=== PATIENT | male | born 2000 | race Caucasian/White ===

== ENCOUNTER 2023-01-22 08:09 | Emergency (ER) | payer BC, OTHER ==
[2023-01-22] MEDS ORDERED: Sodium Chloride 0.9% 10 ML Syringe FLUSH PRN (08:26)
[2023-01-22] MEDS ORDERED: Sodium Chloride 0.9% 1,000 ML IV ONE ×2 (08:27→10:34)
[2023-01-22] MEDS ORDERED: Ondansetron 4 MG/2 ML SDV IVPUSH ONE ×2 (11:01→12:19)
[2023-01-22] MEDS ORDERED: Morphine 4 MG/ML Syringe IVPUSH ONE (11:01)
[2023-01-22] MEDS ORDERED: Iopamidol 612 MG/ML 100 ML Bottle IVPUSH ONE (11:02)
[2023-01-22] MEDS ORDERED: Sodium Chloride 0.9% 10 ML Syringe FLUSH ONE (11:15)
[2023-01-22] MEDS ORDERED: Dicyclomine 20 MG/2 ML SDV IM ONE (12:19)
== END 2023-01-22 12:50 | disposition home or self-care (01) ==
LOC: JD.ED 08:09
DX: R10.11 Right upper quadrant pain (principal); R11.2 Nausea with vomiting, unspecified; D72.829 Elevated white blood cell count, unspecified
CPT/HCPCS: 36415; 74177; 76705; 80053; 83690; 85025; 96361; 96372; 96374; 96375; 96376; 99284; J0500; J2270; J2405; J3490; J7030; Q9967

== ENCOUNTER 2023-01-26 06:17 | Day surgery (SDC) | payer BC, OTHER ==
[~2023-01-26 06:17] MED LIST: Lactated Ringers 1,000 ML IV SCH; Lidocaine 1%/Sod Bicarbonate in NS 8.4% 1 ML Syringe IDERM PRN; Sodium Chloride 0.9% 10 ML Syringe FLUSH PRN; Sodium Chloride 0.9% 10 ML Syringe FLUSH SCH
[2023-01-26] MEDS ORDERED: Propofol 200 MG/20 ML SDV ONE (07:00)
[2023-01-26] MEDS ORDERED: fentaNYL 100 MCG/2 ML SDV ONE (07:00)
[2023-01-26] MEDS ORDERED: Lidocaine 1% 4 ML ONE (07:00)
[2023-01-26] MEDS ORDERED: Lidocaine 1% 2 ML ONE (07:02)
== END 2023-01-26 08:15 | disposition home or self-care (01) ==
LOC: JD.SDS 06:17
PROVIDERS: ATTEND Surgery
DX: K29.50 Unspecified chronic gastritis without bleeding (principal); K29.80 Duodenitis without bleeding; J30.9 Allergic rhinitis, unspecified; F41.9 Anxiety disorder, unspecified; F32.A Depression, unspecified; J93.9 Pneumothorax, unspecified; F17.290 Nicotine dependence, other tobacco product, uncomplicated; D72.829 Elevated white blood cell count, unspecified; Z79.899 Other long term (current) drug therapy; Z98.890 Other specified postprocedural states; Z86.16 Personal history of COVID-19
CPT/HCPCS: 43239; J2704; J3010; J7120; J3490

== ENCOUNTER 2025-02-11 17:43 | Emergency (ER) | payer BC, OTHER | END 2025-02-11 19:31 | disposition home or self-care (01) | LOC: JD.ED 17:43 | DX: S83.91XA Sprain of unspecified site of right knee, initial encounter (principal); W19.XXXA Unspecified fall, initial encounter; Z79.899 Other long term (current) drug therapy; Z86.16 Personal history of COVID-19 | CPT/HCPCS: 73562-26-RT; 73562-RT; 99283; 99284 ==

== ENCOUNTER 2025-03-26 07:40 | Day surgery (SDC) | payer OTHER ==
[~2025-03-26 07:40] MED LIST changes: +Dexamethasone 4 MG/ML 5 ML MDV ONE; -Lactated Ringers 1,000 ML IV SCH; -Lidocaine 1%/Sod Bicarbonate in NS 8.4% 1 ML Syringe IDERM PRN; +Ondansetron 4 MG/2 ML SDV ONE; +Propofol 200 MG/20 ML SDV ONE; +dexmedeTOMIDine HCl 200 MCG/2 ML SDV ONE; +fentaNYL 100 MCG/2 ML SDV ONE
[2025-03-26] MEDS: Lactated Ringers 1,000 ML IV SCH (08:00)
[2025-03-26] MEDS ORDERED: HYDROmorphone 0.5 MG/0.5 ML Syringe IVPUSH ONE (08:28)
[2025-03-26] MEDS ORDERED: Sodium Chloride 0.9% 100 ML ONE (08:30)
[2025-03-26] MEDS ORDERED: Propofol 200 MG/20 ML SDV ONE ×2 (08:33→09:23)
[2025-03-26] MEDS ORDERED: fentaNYL 100 MCG/2 ML SDV ONE (08:34)
[2025-03-26] MEDS ORDERED: ceFAZolin 2 GM Vial ONE (09:15)
[2025-03-26] MEDS: EPINEPHrine 1 MG/ML SDV ONE (09:58)
[2025-03-26] MEDS: Bupivacaine 0.25% 10 ML SDV ONE (10:05)
[2025-03-26] MEDS: fentaNYL 100 MCG/2 ML SDV IVPUSH PRN (10:45)
[2025-03-26] MEDS ORDERED: Acetaminophen/HYDROcodone 325-5 MG Tab PO PRN (10:57)
== END 2025-03-26 12:55 | disposition home or self-care (01) ==
LOC: JD.SDS 07:40
PROVIDERS: ATTEND Orthopaedic Surgery
DX: S83.241A Other tear of medial meniscus, current injury, right knee, initial encounter (principal); F41.9 Anxiety disorder, unspecified; F32.A Depression, unspecified; Z79.899 Other long term (current) drug therapy; X58.XXXA Exposure to other specified factors, initial encounter
CPT/HCPCS: 29881; J0171; J0665; J0690; J1100; J2405; J2704; J3010; J7120